=== PATIENT | female | born 1980 | race Caucasian/White ===

== ENCOUNTER → 2020-02-05 17:07 | Outpatient (BNVA) | payer MEDICAID, SELFPAY | PROVIDERS: Visit Provider Nurse Practitioner Family | DX: Z20.828 Contact with and (suspected) exposure to other viral communicable diseases (principal) | CPT/HCPCS: 87635 ==

== ENCOUNTER → 2020-10-08 11:37 | Outpatient (BNVA) | payer MEDICAID, SELFPAY | PROVIDERS: Visit Provider Nurse Practitioner Family | DX: M25.552 Pain in left hip (principal); M54.5 Low back pain | CPT/HCPCS: 73502 ==

== ENCOUNTER → 2020-10-09 12:10 | Outpatient (BNVA) | payer MEDICAID, SELFPAY | PROVIDERS: Visit Provider Nurse Practitioner Family | DX: R53.83 Other fatigue (principal); E55.9 Vitamin D deficiency, unspecified; M19.90 Unspecified osteoarthritis, unspecified site; Z13.6 Encounter for screening for cardiovascular disorders; Z79.899 Other long term (current) drug therapy | CPT/HCPCS: 80053; 80061; 81003; 82306; 83036; 84443; 85025 ==

== ENCOUNTER 2020-12-10 06:00 | Outpatient (RCR) | payer MEDICAID, SELFPAY | END 2020-12-14 23:59 | disposition home or self-care (01) | LOC: WPT 06:00 | PROVIDERS: Referring Provider Nurse Practitioner Family; Visit Provider Nurse Practitioner Family | DX: M54.5 Low back pain (principal) | CPT/HCPCS: 97110; 97161 ==

== ENCOUNTER 2020-12-15 06:00 | Outpatient (RCR) | payer MEDICAID, SELFPAY | END 2021-01-14 23:59 | disposition home or self-care (01) | LOC: WPT 06:00 | PROVIDERS: Referring Provider Nurse Practitioner Family; Visit Provider Nurse Practitioner Family | DX: M54.5 Low back pain (principal); G89.29 Other chronic pain | CPT/HCPCS: 97110; 97530 ==

== ENCOUNTER → 2021-01-17 13:12 | Outpatient (BNVA) | payer MEDICAID, SELFPAY | PROVIDERS: Visit Provider Psychiatry & Neurology Psychiatry | DX: F43.12 Post-traumatic stress disorder, chronic (principal); F33.2 Major depressive disorder, recurrent severe without psychotic features; F41.1 Generalized anxiety disorder; F17.210 Nicotine dependence, cigarettes, uncomplicated | CPT/HCPCS: 99204 ==

== ENCOUNTER 2021-03-11 08:23 | Outpatient (CLI) | payer MEDICAID, SELFPAY ==
--- NOTE | 2021-03-11 08:37 | MR_ITS ---
WS: [id number] MRI LUMBAR SPINE NONCONTRAST TECHNIQUE: Sagittal T1, T2 and STIR imaging. Axial T1 and T2 imaging. CLINICAL INFORMATION: RADICULOPATHY COMPARISON: None. FINDINGS: Normal lumbar alignment. No acute compression. No high-grade central canal stenosis. L1-L2: Normal. L2-L3: Normal. L3-L4: No significant disc bulging. Mild facet arthropathy. Spinal canal and foramen are patent. L4-L5: Mild annular bulging. Mild facet arthropathy. Spinal canal and foramen are patent. L5-S1: No significant disc bulging. Mild facet arthropathy. Spinal canal and foramen are patent. Suggestion of a small pedunculated fibroid dome of the uterus measuring 2.1 cm. This can be followed up with ultrasound. Small right ovarian cyst. Left renal cyst. MR/MR lumbar spine wo con* [id number] IMPRESSION: 1. Mild lumbar curve. No acute compression. No high-grade central canal stenos is. 2. Mild annular bulging L4-5 with slight effacement of ventral thecal sac. 3. Mild facet arthropathy L3-L4 L4-L5 and L5-S1. 4. No significant spinal canal or foraminal narrowing. 5. Suggestion of a pedunculated fibroid uterine fundus measuring 2.1 cm. This can be followed up with ultrasound.
--- NOTE | 2021-03-11 08:38 | MR_ITS ---
WS: [id number] MRI LEFT HIP NONCONTRAST TECHNIQUE: Axial T1, axial T2 fat sat, coronal T1, coronal STIR, sagittal T2 fat sat, sagittal T1, an d sagittal T2 fat sat, of both hips. CLINICAL INFORMATION: FEMORAL ACETABULAR IMPINGEMENT OF LEFT HIP JOINT COMPARISON: None. FINDINGS: Normal bone marrow signal in the left hip and acetabulum. No acute fractures. Normal femoral neck. Mi ld joint space narrowing bilaterally. No evidence of avascular necrosis. Small amount of edema adjace nt to the left greater trochanter consistent with trochanteric bursitis. Trace edema adjacent to the right greater trochanter. Hypertrophic changes of the acetabulum bilaterally. Acetabular retroversion better assess the recent radiographs associated with an increased risk of femoral acetabular impinge ment. No edema in the acetabulum or femoral necks. Normal superior and inferior pubic rami. Normal visualized soft tissues.Small amount of edema involvi ng the right sacrum adjacent to the sacroiliac joint. Normal bone marrow signal in the lower lumbar spine.Trace free fluid in the cul-de-sac. Right ovarian cyst measuring 1.8 cm MR/MR hip LT wo con* [id number] IMPRESSION: 1. Normal bone marrow signal in both hips. No acute fractures. 2. Acetabular retroversion seen on the recent radiographs. No edema in the ying tabulum or femoral necks. 3. Mild hypertrophic changes involving the acetabulum bilaterally. 4. Mild left greater than right trochanteric bursitis. 5. Small amount of edema in the right sacrum adjacent to the sacroiliac joint likely degenerative or inflammatory. Left sacroiliac joint is normal. 6. Small amount of free fluid in the pelvis with small right ovarian cyst kenya uring 1.8 cm.
== END 2021-03-11 08:24 | disposition home or self-care (01) ==
PROVIDERS: Visit Provider Nurse Practitioner Family
DX: M54.16 Radiculopathy, lumbar region (principal); M25.852 Other specified joint disorders, left hip; M71.552 Other bursitis, not elsewhere classified, left hip; R60.0 Localized edema; M51.26 Other intervertebral disc displacement, lumbar region; M47.816 Spondylosis without myelopathy or radiculopathy, lumbar region; M47.817 Spondylosis without myelopathy or radiculopathy, lumbosacral region
CPT/HCPCS: 72148; 73721

== ENCOUNTER 2021-04-04 06:00 | Outpatient (RCR) | payer MEDICAID, SELFPAY | END 2021-04-15 23:59 | disposition home or self-care (01) | LOC: WPT 06:00 | PROVIDERS: PCP Nurse Practitioner Family; Referring Provider Nurse Practitioner Family; Visit Provider Nurse Practitioner Family | DX: M54.50 Low back pain, unspecified (principal); G89.29 Other chronic pain | CPT/HCPCS: 97110; 97161 ==

== ENCOUNTER 2021-04-16 06:00 | Outpatient (RCR) | payer MEDICAID, SELFPAY | END 2021-05-16 23:59 | disposition home or self-care (01) | LOC: WPT 06:00 | PROVIDERS: Referring Provider Nurse Practitioner Family; Visit Provider Nurse Practitioner Family | DX: M54.50 Low back pain, unspecified (principal) | CPT/HCPCS: 97110; 97140; 97530 ==

== ENCOUNTER → 2021-04-28 13:55 | Outpatient (BNVA) | payer MEDICAID, SELFPAY | PROVIDERS: PCP Nurse Practitioner Family; Visit Provider Counselor Mental Health | DX: F41.1 Generalized anxiety disorder (principal); F33.2 Major depressive disorder, recurrent severe without psychotic features; F43.12 Post-traumatic stress disorder, chronic | CPT/HCPCS: 90834 ==

== ENCOUNTER → 2021-05-02 10:42 | Outpatient (BNVA) | payer MEDICAID, SELFPAY | PROVIDERS: Visit Provider Psychiatry & Neurology Psychiatry | DX: F41.1 Generalized anxiety disorder (principal); F33.2 Major depressive disorder, recurrent severe without psychotic features; F43.12 Post-traumatic stress disorder, chronic; F17.210 Nicotine dependence, cigarettes, uncomplicated | CPT/HCPCS: 99214 ==

== ENCOUNTER 2021-05-07 12:33 | Outpatient (CLI) | payer MEDICAID, SELFPAY ==
--- NOTE | 2021-05-07 12:44 | US_ITS ---
WS: [id number] TRANSABDOMINAL PELVIC AND TRANSVAGINAL PELVIC ULTRASOUND HISTORY: Uterine leiomyoma. COMPARISON: None available. Uterus: 8.1 cm x 5.4 cm x 4.5 cm. Normal size anteverted uterus. Endometrium: 1.4 cm. Mildly thickened heterogeneous endometrium. Endometrium within normal limits for menstruating female. No increased vascularity. Right ovary: 2.1 cm x 1.7 cm x 1.4 cm. Normal size ovary. Normal vascularity. Left ovary: 2.1 cm x 2.8 cm x 2.4 cm. LEFT ovary is slightly enlarged. Adjacent to the ovary may be i nseparable is a cystic mass measuring 1.9 x 2.0 x 2.5 cm with no increased vascularity. No free fluid. US/US pelvic with transvaginal IMPRESSION: 1. Slightly enlarged LEFT ovary with an adjacent paraovarian cyst. The LEFT ov gilberto does abut the uterus. Alternatively this could be an exophytic fibroid from the uterus extending into the LEFT adnexa mimicking an ovary. 2. Normal endometrium.
== END 2021-05-07 12:34 | disposition home or self-care (01) ==
LOC: RAD 12:34
PROVIDERS: Visit Provider Nurse Practitioner Family
DX: F41.1 Generalized anxiety disorder (principal); F33.2 Major depressive disorder, recurrent severe without psychotic features; F43.12 Post-traumatic stress disorder, chronic
CPT/HCPCS: 90837; 76830; 76856; 90834

== ENCOUNTER 2021-05-17 06:00 | Outpatient (RCR) | payer MEDICAID, SELFPAY | END 2021-06-16 23:59 | disposition home or self-care (01) | LOC: WPT 06:00 | PROVIDERS: PCP Family Medicine; Referring Provider Nurse Practitioner Family; Visit Provider Nurse Practitioner Family | DX: M54.2 Cervicalgia (principal); G89.29 Other chronic pain | CPT/HCPCS: 97110; 97140; 97530 ==

== ENCOUNTER → 2021-06-12 12:19 | Outpatient (BNVA) | payer MEDICAID, SELFPAY | PROVIDERS: PCP Family Medicine; Visit Provider Nurse Practitioner Family | DX: J06.9 Acute upper respiratory infection, unspecified (principal) | CPT/HCPCS: 87635 ==

== ENCOUNTER → 2021-07-30 11:05 | Outpatient (BNVA) | payer MEDICAID, SELFPAY | PROVIDERS: PCP Family Medicine; Visit Provider Psychiatry & Neurology Psychiatry | DX: F41.1 Generalized anxiety disorder (principal); F33.2 Major depressive disorder, recurrent severe without psychotic features; F43.12 Post-traumatic stress disorder, chronic; F17.210 Nicotine dependence, cigarettes, uncomplicated | CPT/HCPCS: 99213 ==

== ENCOUNTER → 2021-08-11 13:55 | Outpatient (BNVA) | payer MEDICAID, SELFPAY | PROVIDERS: PCP Family Medicine; Referring Provider Nurse Practitioner Family; Visit Provider Obstetrics & Gynecology | DX: Z12.4 Encounter for screening for malignant neoplasm of cervix (principal); N83.8 Other noninflammatory disorders of ovary, fallopian tube and broad ligament; N94.89 Other specified conditions associated with female genital organs and menstrual cycle | CPT/HCPCS: 87624 ==

== ENCOUNTER 2021-09-17 07:35 | Outpatient (CLI) | payer MEDICAID, SELFPAY ==
--- NOTE | 2021-09-17 08:00 | US_ITS ---
WS: [id number] TRANSABDOMINAL PELVIC AND TRANSVAGINAL PELVIC ULTRASOUND HISTORY: N83.8 - Other noninflammatory disorders of ovary, follow-up cyst. COMPARISON: 05/07/2021 Uterus: 8.6 cm x 4.9 cm x 4.6 cm. Normal size anteverted uterus. No fibroid or mass identified today. Endometrium: 1.1 cm. Normal endometrium. No mass or increased vascularity. Right ovary: 4.4 cm x 3.3 cm x 2.2 cm. Mildly prominent ovary. There is a cyst measuring 2.6 x 2.8 x 2.0 cm associated with the ovary. This is a simple cyst. Normal vascularity within the adjacent ovari an tissue. Left ovary: 2.2 cm x 2.1 cm x 1.6 cm. Normal size ovary. Previously described LEFT paraovarian cyst i s no longer present. No free fluid. US/US pelvic with transvaginal IMPRESSION: 1. Resolved LEFT adnexal cyst since the prior study. 2. No fibroid. 3. New simple LEFT RIGHT ovarian cyst measures 2.6 x 2.8 x 2.0 cm.
== END 2021-09-17 07:36 | disposition home or self-care (01) ==
LOC: RAD 07:36
PROVIDERS: PCP Family Medicine; Visit Provider Obstetrics & Gynecology
DX: N83.8 Other noninflammatory disorders of ovary, fallopian tube and broad ligament (principal)
CPT/HCPCS: 76830; 76856

== ENCOUNTER → 2021-12-03 13:59 | Outpatient (BNVA) | payer MEDICAID, SELFPAY | PROVIDERS: PCP Family Medicine; Referring Provider Dermatology; Visit Provider Podiatrist Foot & Ankle Surgery | DX: M25.571 Pain in right ankle and joints of right foot (principal) | CPT/HCPCS: 73610; 99203; 99204 ==

== ENCOUNTER → 2022-03-09 10:53 | Outpatient (BNVA) | payer MEDICAID, SELFPAY | PROVIDERS: PCP Family Medicine; Visit Provider Podiatrist Foot & Ankle Surgery | DX: M25.571 Pain in right ankle and joints of right foot (principal) | CPT/HCPCS: 20600 ==

== ENCOUNTER → 2022-06-22 10:21 | Outpatient (BNVA) | payer MEDICAID, SELFPAY | PROVIDERS: PCP Nurse Practitioner Family; Visit Provider Podiatrist Foot & Ankle Surgery | DX: M25.571 Pain in right ankle and joints of right foot (principal) | CPT/HCPCS: 99213 ==

== ENCOUNTER → 2022-10-05 14:31 | Outpatient (BNVA) | payer MEDICAID, SELFPAY | PROVIDERS: PCP Nurse Practitioner Family; Visit Provider Internal Medicine Cardiovascular Disease | DX: R07.9 Chest pain, unspecified (principal); F12.10 Cannabis abuse, uncomplicated; R55 Syncope and collapse; E78.5 Hyperlipidemia, unspecified; I10 Essential (primary) hypertension; R06.02 Shortness of breath; F17.210 Nicotine dependence, cigarettes, uncomplicated | CPT/HCPCS: 99204 ==

== ENCOUNTER 2022-10-23 14:22 | Outpatient (CLI) | payer MEDICAID, SELFPAY ==
--- NOTE | 2022-10-23 14:45 | USCV_ITS ---
[facility] Age[facility] 42 Gender: F : 1980 Exam Date: 10/23/2022 14:35 Ordering Phys: Antonella Lou MD ([email or web address]) Technologist: Cal Kumar Exam Location: [facility] [place] Indication: Congestive heart failure BP: 145 / 90 HR: 64 Rhythm: Sinus Technical Quality: Adequate MEASUREMENTS (Male / Female) Normal Values 2D ECHO LV Diastolic Diameter PLAX 4.3 cm 4.2 - 5.9 / 3.9 - 5.3 cm LV Systolic Diameter PLAX 3.2 cm IVS Diastolic Thickness 1.3 cm 0.6 - 1.0 / 0.6 - 0.9 cm IVS Systolic Thickness 1.6 cm LVPW Diastolic Thickness 1.0 cm 0.6 - 1.0 / 0.6 - 0.9 cm LVPW Systolic Thickness 1.8 cm LVOT Diameter 2.0 cm LV Ejection Fraction 2D Teich 45.3 % LV Ejection Fraction MOD 2C 55.6 % LV Ejection Fraction 2C AL 55.0 % LA Diameter 3.4 cm IVC Diameter 1.3 cm M-MODE Aortic Annulus Diameter 3.2 cm LA Ao Ratio MM 1.1 MV E Point Septal Separation 0.7 cm DOPPLER AV Peak Velocity 126.0 cm/s LVOT Peak Velocity 102.0 cm/s AV Area Cont Eq vti 3.1 cm squared AV Area Cont Eq pk 2.7 cm squared MV Area PHT 5.0 cm squared Mitral E to A Ratio 1.3 MV E' Velocity 57.0 cm/s Mitral E to MV E' Ratio 7.1 Mitral E to LV E' Lateral Ratio 7.8 Mitral E to LV E' Septal Ratio 6.5 TR Peak Velocity 163.0 cm/s TR Peak Gradient 10.6 mmHg RV Acceleration Time 0.2 s FINDINGS Left Ventricle Normal left ventricular size, systolic function and wall thickness, with no regional wall motion abnormalities. Left ventricular ejection fraction is estimated at 70 %. Normal diastolic function. Right Ventricle Normal right ventricular size and systolic function. Right Atrium Normal right atrial size. Left Atrium Normal left atrial size. Mitral Valve Mildly thickened mitral valve. No mitral valve stenosis. Trace mitral valve regurgitation. Aortic Valve Aortic valve not well visualized. No aortic valve stenosis. No aortic valve regurgitation. Tricuspid Valve Structurally normal tricuspid valve. No tricuspid valve stenosis. Trace to mild tricuspid valve regurgitation. Pulmonic Valve Structurally normal pulmonic valve. No pulmonary valve stenosis. No pulmonary valve regurgitation. Pericardium No pericardial effusion. Aorta Normal size aortic root and proximal ascending aorta. IVC Normal IVC dimension with >50% respiratory change of the inferior vena cava. CONCLUSIONS 1. Normal left ventricular size, systolic function and wall thickness, with no regional wall motion abnormalities. Left ventricular ejection fraction is estimated at 70 %. Normal diastolic function. 2. No significant valvular abnormality. 3. No prior similar studies to compare. Eva Conrad MD (Electronically Signed) Final Date: 29 October 2022 15:50 S
== END 2022-10-23 14:23 | disposition home or self-care (01) ==
LOC: RAD 14:23
PROVIDERS: PCP Nurse Practitioner Family; Visit Provider Internal Medicine Cardiovascular Disease
DX: R07.9 Chest pain, unspecified (principal); I50.9 Heart failure, unspecified; R06.09 Other forms of dyspnea
CPT/HCPCS: 93306; 99204

== ENCOUNTER 2022-10-30 06:32 | Outpatient (CLI) | payer MEDICAID, SELFPAY ==
--- NOTE | 2022-10-30 | ECG_ITS ---
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 Interpretive Statements NAME OF STUDY: EXERCISE SESTAMIBI STRESS TEST INDICATION: [Chest Pain, ] EXERCISE DATA: The patient was exercised by Kg protocol. Baseline heart rate was 59 beats per minute. Baseline blood pressure was 130/77 millimeters of mercury. Target heart rate was 151 beats per minute. Maximum heart rate achieved was 160 which was 105 % of the target heart rate. Maximum blood pressure was 172/84 millimeters of mercury. Total exercise time was 6 minutes and 46 seoconds. Maximum METs achieved was 10.2. The reason for ending the test was maximal effort achieved. The patient complained of shortness of breath during the stress test, which then resolved at the end of the test. ELECTROCARDIOGRAM: BASELINE: Showed sinus bradycardia, normal axis, no significant ST-T changes at the baseline noted. [] EXERCISE: At the peak exercise level, [] No significant ST-T changes suggestive of ischemia noted. [] RECOVERY: During the recovery period, heart rate dropped appropriately. No significant ST-T changes in the recovery suggestive of ischemia noted. [] CONCLUSION: 1. Exercise capacity is good 2. Heart rate response was appropriate 3. Blood pressure response was appropriate 4. Symptoms not suggestive of ischemia. 5. Electrocardiogram portion of the stress test was not suggestive of ischemia. 6. Nuclear scan will be documented separately. Electronically Signed On 11-06-2022 16:10:49 CDT by Philip Alcazar M.D. [id number]
[2022-10-30 06:51] VITALS: BMI 28.5
--- NOTE | 2022-10-30 06:54 | NMCV_ITS ---
NM feli perf SPECT r/s* [id number] Ngozi Peter Age: 42 Gender: F : 1980 Exam Date: 10/30/2022 06:54 Ordering Phys: Antonella Lou MD ([email or web address]) Technologist: OSVALDO Rodas Exam Location: [facility] Indications: CORONARY ANGIOPLASTY STATUS, CHEST PAIN STRESS TEST Please [facility] IMAGE PROTOCOL Rest Exercise Radiopharmaceutical Dose (mCi) Administration Site Administered by Rest: Tc-99m 10.7 IV Wiley Anderson, CERTIFIED MEDICAL BILLER Sestamibi Stress:Tc-99m 32.7 IV Wiley Anderson, CERTIFIED MEDICAL BILLER Sestamibi Rest: 30-Oct-2022 60 Discovery 630 Stress: 30-Oct-2022 30 Discovery 630 Radiopharmaceutical was injected at 86 % maximum heart rate. Images obtained in supine and prone position. SPECT RESULTS Technical Quality: Excellent Raw Data Analysis: Normal Image Corrections: No attenuation or motion correction applied Summed Stress Score: 0 Summed Rest Score: 0 Summed Difference Score: 0 PERFUSION FINDINGS SPECT images demonstrate homogeneous tracer distribution throughout the myocardium. FUNCTIONAL RESULTS (calculated via Gated SPECT) Stress Image LV EF (%): 76 Stress EDV (mL):86 TID: 0.75 Stress ESV (mL):21 FUNCTIONAL FINDINGS: There is normal left ventricular systolic function. IMPRESSIONS 1. Normal myocardial perfusion imaging with no evidence of ischemia. 2. LV systolic function is normal. Philip Alcazar MD (Electronically Signed) Final Date: 30 October 2022 10:27 S
[2022-10-30 09:00] VITALS: BP 146/77; PULSE 80
== END 2022-10-30 06:33 | disposition home or self-care (01) ==
LOC: CDL 06:33
PROVIDERS: PCP Nurse Practitioner Family; Visit Provider Internal Medicine Cardiovascular Disease
DX: R07.9 Chest pain, unspecified (principal); Z98.61 Coronary angioplasty status
CPT/HCPCS: 36415; 78452; 93017; A9500

== ENCOUNTER → 2022-12-10 09:14 | Outpatient (BNVA) | payer MEDICAID, SELFPAY | PROVIDERS: PCP Nurse Practitioner Family; Visit Provider Nurse Practitioner Family | DX: C44.519 Basal cell carcinoma of skin of other part of trunk (principal); C44.612 Basal cell carcinoma of skin of right upper limb, including shoulder; L81.4 Other melanin hyperpigmentation; D22.5 Melanocytic nevi of trunk; L85.3 Xerosis cutis; L57.8 Other skin changes due to chronic exposure to nonionizing radiation; L70.5 Acne excoriee; L57.0 Actinic keratosis | CPT/HCPCS: 17000; 99214 ==

== ENCOUNTER → 2023-02-25 11:26 | Outpatient (BNVA) | payer MEDICAID, SELFPAY | PROVIDERS: PCP Nurse Practitioner Family; Visit Provider Nurse Practitioner | DX: R63.4 Abnormal weight loss (principal) | CPT/HCPCS: 80053; 84443; 85025 ==

== ENCOUNTER → 2023-09-16 09:32 | Outpatient (BNVA) | payer MEDICAID, SELFPAY | PROVIDERS: PCP Nurse Practitioner Family; Visit Provider Nurse Practitioner Family | DX: C44.519 Basal cell carcinoma of skin of other part of trunk (principal); C44.612 Basal cell carcinoma of skin of right upper limb, including shoulder; L81.4 Other melanin hyperpigmentation; D22.5 Melanocytic nevi of trunk; L85.3 Xerosis cutis; L57.8 Other skin changes due to chronic exposure to nonionizing radiation; L70.5 Acne excoriee; B35.1 Tinea unguium | CPT/HCPCS: 99214 ==

== ENCOUNTER → 2023-12-23 13:45 | Outpatient (BNVA) | payer MEDICAID, SELFPAY | PROVIDERS: PCP Nurse Practitioner Family; Visit Provider Internal Medicine | DX: R07.9 Chest pain, unspecified (principal); F12.10 Cannabis abuse, uncomplicated; R55 Syncope and collapse; I10 Essential (primary) hypertension; E78.5 Hyperlipidemia, unspecified; Z72.0 Tobacco use | CPT/HCPCS: 99214 ==

== ENCOUNTER → 2024-03-30 09:35 | Outpatient (BNVA) | payer MEDICAID, SELFPAY | PROVIDERS: PCP Nurse Practitioner Family; Visit Provider Surgery | DX: C44.91 Basal cell carcinoma of skin, unspecified | CPT/HCPCS: 99204 ==

== ENCOUNTER 2024-04-11 07:49 | Day surgery (SDC) | payer MEDICAID, SELFPAY ==
[2024-04-11] VITALS (10 sets, daily range): BP systolic 102–163; BP diastolic 69–86; PULSE 72–89; RESP 16–18; TEMP 36.4–36.6; O2SAT 95–100; BMI 24.7
[2024-04-11] MEDS: sodium chloride 0.9% 1,000 ML 30 ML IV (08:21)
--- NOTE | 2024-04-11 08:45 | ANES.PREANE2 ---
Pre-Anesthetic Assessment Height/Weight: Height 1.57 m Weight 61.235 kg Temp Pulse Resp BP Pulse Ox O2 Del Method 97.9 F 72 18 120/79 100 Room Air 04/11/24 08:12 04/11/24 08:12 04/11/24 08:12 04/11/24 08:12 04/11/24 08:12 04/11/24 08:15 Operation Date: 04/11/24 09:55 Proposed Procedures p excision of skin lesion on left shoulder and right shoulder 71954, 52681, M75.90(Bilateral) - Matheus Kee DO Familial anesthetic complications: None Was Beta Sachin taken within 24 hours: N/A Was Clonidine taken within 24 hours: N/A Last intake: Intake Last Liquid Date 04/10/24 Last Liquid Time 20:00 Last Solid Date 04/10/24 Last Solid Time 20:00 Social Tobacco and No alcohol Exam alert, oriented x 3, clear to auscultation bilaterally and regular rate & rhythm Airway Mallampati: Class I Dentition: other (no teeth) CV/HEM Hypertension Metabolic Hyperlipidemia Anesthetic Plan ASA status: 3 Anesthesia: Choice Risk of > 500 ml blood loss (7ml/kg in children): No Medications/Allergies Home Medications Medication Instructions Recorded Confirmed Last Taken Type albuterol sulfate 90 mcg/actuation 1 inh inhalation QID 08/04/19 04/10/24 04/11/24 History aerosol inhaler (Proventil HFA) cetirizine 10 mg capsule (Zyrtec) 10 mg PO DAILY 30 days #30 caps 08/04/19 04/10/24 04/09/24 Rx fluticasone propionate 50 2 spray intranasal DAILY PRN 08/04/19 04/10/24 04/09/24 Rx mcg/actuation nasal allergy symptoms 30 days #15.8 mL spray,suspension montelukast 10 mg tablet 10 mg PO DAILY 08/04/19 04/10/24 04/09/24 History (Singulair) glycopyrrolate 9 mcg-formoterol 2 puff inhalation BID 12/04/20 04/10/24 04/11/24 History 4.8 mcg HFA aerosol inhaler (Bevespi Aerosphere) ibuprofen 800 mg tablet 800 mg PO TID PRN pain 01/17/21 04/10/24 04/09/24 History gabapentin 300 mg capsule 300 mg PO TID 02/21/21 04/10/24 04/09/24 History oyster shell with vit d PO DAILY 02/21/21 03/30/24 Unknown History pantoprazole 20 mg tablet,delayed 20 mg PO DAILY 02/21/21 04/10/24 04/09/24 History release (Protonix) rizatriptan 10 mg tablet (Maxalt) 10 mg PO Q2H PRN Headache 02/21/21 04/10/24 04/02/24 History multivitamin 1 tab PO DAILY 05/02/21 03/30/24 Unknown History mupirocin 2 % topical ointment 1 applic topical BID #22 grams 03/11/22 03/30/24 Unknown Rx duloxetine 60 mg capsule,delayed 60 mg PO DAILY #30 caps 06/12/22 04/10/24 04/09/24 Rx release hydroxyzine HCl 50 mg tablet 50 mg PO QID PRN anxiety #120 tabs 06/12/22 04/10/24 04/09/24 Rx mirtazapine 15 mg tablet 22.5 mg (1.5 x 15 mg) PO .HS #45 06/12/22 04/10/24 04/09/24 Rx tabs oxcarbazepine 300 mg tablet 600 mg (2 x 300 mg) PO BID #120 06/12/22 04/10/24 04/09/24 Rx (Trileptal) tabs prazosin 5 mg capsule 5 mg PO .HS #30 caps 06/12/22 04/10/24 04/09/24 Rx nitroglycerin 0.4 mg sublingual 0.4 mg sublingual Q5M PRN chest 10/05/22 04/10/24 03/06/24 Rx tablet pain 30 days #30 tabs Allergies Allergy/AdvReac Type Severity Reaction Status Date / Time ciprofloxacin [From Cipro] Allergy Intermediate rash Verified 12/23/23 13:55 Current Medications Generic Name Dose Route Start Last Admin Trade Name Freq PRN Reason Stop Dose Admin Sodium Chloride 1,000 mls @ 30 mls/hr 04/11/24 08:00 04/11/24 08:21 Sodium Chloride 0.9% IV 04/12/24 07:59 30 mls/hr .Q24H COREY Administration PFSH Anesthesia Medical History Oral infection Syncope H/O fracture of ankle Adnexal mass Femoral acetabular impingement Gout of left hip due to renal impairment Arthritis Low back pain radiating to right leg Left hip pain Cough Insomnia Anxiety Depression Bipolar 1 disorder COPD (chronic obstructive pulmonary disease) Surgical History S/P tonsillectomy and adenoidectomy H/O laparoscopy left ankle S/P cholecystectomy H/O unilateral salpingectomy ectopic H/O tubal ligation H/O oral surgery 2000- all teeth extracted H/O plastic surgery facial surgery H/O myringotomy Family History Mother Diabetes Hyperlipidemia Hypertension Thyroid disease Heart disease Sister Diabetes x2 Thyroid disease x2 Denies family history of Colon cancer Ovarian cancer Clotting disorder Breast cancer Anesthesia complication Bleeding disorder Uterine cancer Stroke Social History Smoking and tobacco/nicotine status: current every day tobacco/nicotine user cigarettes Packs smoked per day: 1 Years cigarettes smoked: 26 Quit status (tobacco/nicotine): has tried quititng Number of times tried to quit tobacco: 1 Second hand smoke exposure: No Alcohol intake: former Year of sobriety/quit date alcohol: 2010 Substance/Drug Use: current Other substance/drug use details: Used once recently in 11 years. Female Reproductive History Date of last menstrual period: 03/23/24 Data Anesthesia Cardiac Studies: Echocardiogram 10/23/22 Sestamibi Stress Test (Cardiology) 10/30/22 Cardiac Event Monitor 12/24/23
--- NOTE | 2024-04-11 09:15 | P.HPUD_ITS ---
Surgery/Procedure H&P Update DATE OF PROCEDURE: April 11, 2024 DATE H&P PERFORMED: 03/30/24 H&P UPDATE INFORMATION: I have reviewed H&P completed within last 30 days, I have examined patient prior to procedure and No changes to prior documentation PLANNED PROCEDURE: Operation Date: 04/11/24 09:55 Proposed Procedures p excision of skin lesion on left shoulder and right shoulder 97522, 19250, M75. 90(Bilateral) - Matheus Kee DO
[2024-04-11] MEDS: ceFAZolin 2,000 mg SDV 2000 MG IVP (09:48)
--- NOTE | 2024-04-11 10:27 | P.OP_ITS ---
Operative Report Date of procedure: April 11, 2024 Pre-op diagnosis: Basal cell carcinoma left shoulder Basal cell carcinoma right shoulder Post-op diagnosis: same Procedure done: Excision of basal cell carcinoma left shoulder Excision of basal cell carcinoma right shoulder Implants: None Specimens removed/disposition: Elliptical excision of basal cell carcinoma right shoulder Elliptical excision of basal cell carcinoma left shoulder Surgeon: Matheus Kee DO Anesthesia: General and Local Estimated blood loss (mL): 5 Complications: None apparent Brief History: This is a very pleasant 44-year-old female who presented my office after undergoing shave excisions of lesions over bilateral shoulders. She was found to have basal cell carcinomas with positive margins at each site. Reexcision was indicated. The risks and benefits were explained and documented. Procedure: Patient was brought in the operative room and remained in the hospital bed in the supine position. General endotracheal ovation was achieved by the part of anesthesia. Patient was then placed into the prone position. Bilateral shoulders were inspected prepped and draped in usual sterile fashion. Timeout was performed. All present were in agreement. 2% lidocaine was used to an esthetize the lesions on both shoulders. Both lesions measured 1 cm in diameter. Elliptical excisions measuring 2.5 cm x 1.5 cm were performed over each lesion using a 15 blade scalpel. A 2.5 cm ellipse was created on the right shoulder first. Electrocautery was used to dissect through the dermis and subcutaneous tissue. Specimen was marked with short suture superior and long suture lateral. Hemostasis was achieved electrocautery. Dermis was approximated with 3-0 Vicryl suture in an interrupted fashion. Skin was closed with running 3-0 nylon. Attention was then brought to the left shoulder. A 2.5 cm x 1.5 cm ellipse of skin was performed over the skin lesion. Electrocautery was used dissect down through the dermis and subcutaneous tissue. Hemostasis was achieved with electrocautery. Specimen was marked with short suture superior and long suture lateral. Dermis approximated with 3-0 Vicryl suture in an interrupted fashion. Skin was closed with running 3-0 nylon. Sterile bandages were applied. Patient tolerated procedure well.
--- NOTE | 2024-04-11 12:00 | ANE.PACU2 ---
Inpatient post-anesthesia follow up: Airway intact: Yes Vital signs: Temperature 97.5 F Pulse Rate 78 Respiratory Rate 18 Blood Pressure 152/82 Pulse Oximetry 97 Oxygen Delivery Me thod Room Air Oxygen Flow Rate Fraction of Inspir ed Oxygen Hydration adequate: Yes Nausea and vomiting: No Pain level: 1 Mental status: Baseline
== END 2024-04-11 12:00 | disposition home or self-care (01) ==
PROVIDERS: PCP Nurse Practitioner Family; Visit Provider Surgery
PROC: (CPT 11603; principal; 2024-04-11 09:55)
DX: C44.619 Basal cell carcinoma of skin of left upper limb, including shoulder (principal); C44.612 Basal cell carcinoma of skin of right upper limb, including shoulder; I10 Essential (primary) hypertension; E78.5 Hyperlipidemia, unspecified; J44.9 Chronic obstructive pulmonary disease, unspecified; F17.210 Nicotine dependence, cigarettes, uncomplicated
CPT/HCPCS: 11603 ×2; 88304; J0690; J1100; J2250; J2405; J2704; J3010; J3490; J7030

== ENCOUNTER → 2024-04-24 08:55 | Outpatient (BNVA) | payer MEDICAID, SELFPAY | PROVIDERS: PCP Nurse Practitioner Family; Visit Provider Surgery | DX: C44.91 Basal cell carcinoma of skin, unspecified (principal); Z98.890 Other specified postprocedural states; Z85.828 Personal history of other malignant neoplasm of skin | CPT/HCPCS: 99214 ==

== ENCOUNTER 2024-05-02 06:57 | Day surgery (SDC) | payer MEDICAID, SELFPAY ==
[2024-05-02] VITALS (10 sets, daily range): BP systolic 120–151; BP diastolic 52–86; PULSE 68–91; RESP 15–18; TEMP 36.3–36.8; O2SAT 96–98; BMI 24.7
--- NOTE | 2024-05-02 07:02 | W.PM.OPSUD ---
Surgery/Procedure H&P Update DATE OF PROCEDURE: May 02, 2024 DATE H&P PERFORMED: 04/24/24 H&P UPDATE INFORMATION: I have reviewed H&P completed within last 30 days, I have examined patient prior to procedure and No changes to prior documentation PLANNED PROCEDURE: Operation Date: 05/02/24 08:20 Proposed Procedures p reexcision of basal cell carcinoma of left shoulder(Left) - Matheus Kee DO
--- NOTE | 2024-05-02 07:23 | ANES.PREANE2 ---
Pre-Anesthetic Assessment Height/Weight: Height 1.6 m Weight 63.503 kg Temp Pulse Resp BP Pulse Ox O2 Del Method 97.3 F L 68 18 136/76 97 Room Air 05/02/24 07:12 05/02/24 07:12 05/02/24 07:12 05/02/24 07:12 05/02/24 07:12 05/02/24 07:12 Operation Date: 05/02/24 08:20 Proposed Procedures p reexcision of basal cell carcinoma of left shoulder(Left) - Matheus Kee DO Familial anesthetic complications: None Was Beta Sachin taken within 24 hours: N/A Was Clonidine taken within 24 hours: N/A Last intake: Intake Last Liquid Date 05/01/24 Last Liquid Time 20:00 Last Solid Date 05/01/24 Last Solid Time 19:30 Social Tobacco and No alcohol MJ Airway Mallampati: Class I Dentition: other (none) CV/HEM Stable Angina (hx atypical) and Hypertension Date of Service: 10/30/22 Procedure(s): NM feli perf SPECT r/s* [id number] IMPRESSIONS 1. Normal myocardial perfusion imaging with no evidence of ischemia. 2. LV systolic function is normal. Date of Service: 10/23/22 Procedure(s): CV. echo complete* [id number] CONCLUSIONS 1. Normal left ventricular size, systolic function and wall thickness, with no regional wall motion abnormalities. Left ventricular ejection fraction is estimated at 70 %. Normal diastolic function. 2. No significant valvular abnormality. 3. No prior similar studies to compare. GI Gastroesophageal Reflux Disease Anesthetic Plan ASA status: 2 Anesthesia: General Risk of > 500 ml blood loss (7ml/kg in children): No Medications/Allergies Home Medications Medication Instructions Recorded Confirmed Last Taken Type albuterol sulfate 90 mcg/actuation 1 inh inhalation QID 08/04/19 05/01/24 05/01/24 History aerosol inhaler (Proventil HFA) cetirizine 10 mg capsule (Zyrtec) 10 mg PO DAILY 30 days #30 caps 08/04/19 05/01/24 05/01/24 Rx fluticasone propionate 50 2 spray intranasal DAILY PRN 08/04/19 05/01/24 04/09/24 Rx mcg/actuation nasal allergy symptoms 30 days #15.8 mL spray,suspension montelukast 10 mg tablet 10 mg PO DAILY 08/04/19 05/01/24 04/30/24 History (Singulair) glycopyrrolate 9 mcg-formoterol 2 puff inhalation BID 12/04/20 05/01/24 05/01/24 History 4.8 mcg HFA aerosol inhaler (Bevespi Aerosphere) ibuprofen 800 mg tablet 800 mg PO TID PRN pain 01/17/21 05/01/24 04/09/24 History oyster shell with vit d 1 tab PO DAILY 02/21/21 05/01/24 05/01/24 History pantoprazole 20 mg tablet,delayed 20 mg PO DAILY 02/21/21 05/01/24 05/01/24 History release (Protonix) rizatriptan 10 mg tablet (Maxalt) 10 mg PO Q2H PRN Headache 02/21/21 05/01/24 04/02/24 History multivitamin 1 tab PO DAILY 05/02/21 05/01/24 05/01/24 History mupirocin 2 % topical ointment 1 applic topical BID #22 grams 03/11/22 05/01/24 05/01/24 Rx duloxetine 60 mg capsule,delayed 60 mg PO DAILY #30 caps 06/12/22 05/01/24 05/01/24 Rx release hydroxyzine HCl 50 mg tablet 50 mg PO QID PRN anxiety #120 tabs 06/12/22 05/01/24 04/09/24 Rx mirtazapine 15 mg tablet 22.5 mg (1.5 x 15 mg) PO .HS #45 06/12/22 05/01/24 04/30/24 Rx tabs oxcarbazepine 300 mg tablet 600 mg (2 x 300 mg) PO BID #120 06/12/22 05/01/24 05/01/24 Rx (Trileptal) tabs prazosin 5 mg capsule 5 mg PO .HS #30 caps 06/12/22 05/01/24 05/01/24 Rx nitroglycerin 0.4 mg sublingual 0.4 mg sublingual Q5M PRN chest 10/05/22 05/01/24 03/06/24 Rx tablet pain 30 days #30 tabs docusate sodium 100 mg capsule 100 mg PO BID #10 caps 04/11/24 05/01/24 05/01/24 Rx (Colace) hydrocodone 7.5 mg-acetaminophen 1 tab PO Q6H PRN pain #14 tabs 04/11/24 05/01/24 Unknown Rx 325 mg tablet gabapentin 300 mg capsule 600 mg PO TID 04/18/24 05/01/24 05/01/24 History Allergies Allergy/AdvReac Type Severity Reaction Status Date / Time ciprofloxacin [From Cipro] Allergy Intermediate rash Verified 04/24/24 09:03 eszopiclone [From Lunesta] Allergy ADR-Altered Verified 05/01/24 16:14 Sense of Taste PFSH Anesthesia Medical History (Updated 04/26/24 @ 15:03 by JONI Dumont) Otitis media, chronic, bilateral Oral infection Syncope H/O fracture of ankle Adnexal mass Femoral acetabular impingement Gout of left hip due to renal impairment Arthritis Low back pain radiating to right leg Left hip pain Cough Insomnia Anxiety Depression Bipolar 1 disorder COPD (chronic obstructive pulmonary disease) Surgical History (Updated 04/24/24 @ 10:08 by Matheus Kee DO) Hx of basal cell carcinoma excision Excision of basal cell carcinoma left shoulder Excision of basal cell carcinoma right shoulder 04/11/24 Dr Kee S/P tonsillectomy and adenoidectomy H/O laparoscopy left ankle S/P cholecystectomy H/O unilateral salpingectomy ectopic H/O tubal ligation H/O oral surgery 2000- all teeth extracted H/O plastic surgery facial surgery H/O myringotomy Family History Mother Diabetes Hyperlipidemia Hypertension Thyroid disease Heart disease Sister Diabetes x2 Thyroid disease x2 Denies family history of Colon cancer Ovarian cancer Clotting disorder Breast cancer Anesthesia complication Bleeding disorder Uterine cancer Stroke Social History Smoking and tobacco/nicotine status: current every day tobacco/nicotine user cigarettes Packs smoked per day: 1 Years cigarettes smoked: 26 Quit status (tobacco/nicotine): has tried quititng Number of times tried to quit tobacco: 1 Second hand smoke exposure: No Alcohol intake: former Year of sobriety/quit date alcohol: 2010 Substance/Drug Use: current Other substance/drug use details: Used once recently in 11 years. Female Reproductive History Date of last menstrual period: 04/17/24 Data Anesthesia Cardiac Studies: Echocardiogram 10/23/22 Sestamibi Stress Test (Cardiology) 10/30/22 Cardiac Event Monitor 12/24/23
[2024-05-02] MEDS: sodium chloride 0.9% 1,000 ML 30 ML IV (07:29)
[2024-05-02 07:38] LABS: OR HCG Qualitative Urine Negative (Negative)
[2024-05-02] MEDS: ceFAZolin 2,000 mg SDV 2000 MG IVP (08:15)
[2024-05-02] MEDS: lidocaine-epi 2% PF 1:200,000 20 mL SDV XX (08:31)
[2024-05-02] MEDS: neomycin-poly-bacitracin oint 28 gm 3 APPLIC TOPICAL (09:03)
--- NOTE | 2024-05-02 09:35 | P.OP_ITS ---
Operative Report Date of procedure: May 02, 2024 Pre-op diagnosis: Basal cell carcinoma Post-op diagnosis: same Procedure done: Reexcision of basal cell carcinoma left shoulder Complex closure with creation of skin pedicle flaps x 2 Implants: None Specimens removed/disposition: Elliptical excision of basal cell carcinoma short stitch superior, long stitch lateral Surgeon: Matheus Kee DO Anesthesia: General and Local Estimated blood loss (mL): 5 Complications: None apparent Brief History: This very pleasant 44-year-old female who originally underwent shave excisional biopsy of a basal cell carcinoma on her left shoulder. Margins were positive and she was sent to general surgery. I performed an elliptical excision of the carcinoma and lateral and deep margins were still positive. Reexcision for margins was indicated. The risks and benefits were explained and documented. Procedure: Patient was wheeled operative room placed on the OR table in the supine position. General anesthesia with an LMA was performed by the department of anesthesia. The patient was put into the right lateral decubitus position. The left back and shoulder were inspected prepped and draped in usual sterile fashion. A timeout was performed. All present were in agreement. 2% lidocaine was used to anesthetize the skin surrounding the previous excision. A 10 blade scalpel was then used to make an elliptical excision around the previous excision. Excision measured centimeters in greatest diameter. Electrocautery was used to cut down through the dermis and into the subcutaneous fat. 6 or 7 mm of subcutaneous fat was taken deep to the dermis, as the deep margin was positive in the last specimen. Electrocautery was used to carve out the rest of the ellipse, including deep subcutaneous fat. Superior was marked with a short silk stitch. Lateral was marked with a long silk stitch. Specimen was passed off. Hemostasis was achieved electrocautery. The skin would not come together without very significant tension. In order to close the skin, a complex closure was performed. Skin pedicle flaps were created both left lateral and right lateral using electrocautery. Electrocautery was used to create a 1 cm thickness of skin and subcutaneous tiss ue skin pedicle flap back 4 cm the entire length of the incision of the left laterally and right laterally. The skin did come together with little tension. 2-0 nylon suture was then used to approximate the skin and dermis in the center of the ellipse in a vertical mattress fashion. 3-0 nylon suture was then used to close the remaining length of the incision in a simple interrupted fashion. Skin was washed and dried. Bacitracin was applied. Sterile bandages were applied. Patient tolerated procedure well.
--- NOTE | 2024-05-02 10:25 | ANE.PACU2 ---
Inpatient post-anesthesia follow up: Airway intact: Yes Vital signs: Temperature 98.3 F Pulse Rate 82 Respiratory Rate 18 Blood Pressure 126/85 Pulse Oximetry 96 Oxygen Delivery Me thod Room Air Oxygen Flow Rate Fraction of Inspir ed Oxygen Hydration adequate: Yes Nausea and vomiting: No Pain level: 1 Mental status: Baseline
== END 2024-05-02 10:28 | disposition home or self-care (01) ==
PROVIDERS: Anesthesiology; PCP Nurse Practitioner Family; Visit Provider Surgery
PROC: (CPT 14000; principal; 2024-05-02 08:10)
DX: C44.619 Basal cell carcinoma of skin of left upper limb, including shoulder (principal); I10 Essential (primary) hypertension; K21.9 Gastro-esophageal reflux disease without esophagitis; J44.9 Chronic obstructive pulmonary disease, unspecified; F17.210 Nicotine dependence, cigarettes, uncomplicated
CPT/HCPCS: 14000; 81025; 88307; J0690; J1100; J1885; J2371; J2405; J2704; J3010; J7030

== ENCOUNTER 2024-05-15 16:52 | Emergency (ER) | payer MEDICAID, SELFPAY ==
[2024-05-15 16:54] VITALS: BP 115/64; PULSE 66; RESP 17; TEMP 36.9; O2SAT 97; BMI 24.7
[2024-05-15 18:02] VITALS: BP 107/51; PULSE 61; O2SAT 96
--- NOTE | 2024-05-15 18:11 | ED_ITS ---
HPI - Wound/Laceration General: Chief Complaint: Wound/Laceration Stated Complaint: left shoulder wound Time Seen by Provider: 05/15/24 16:59 History of Present Illness: 44-year-old female presents to the emerg ency room with left shoulder wound that has dehisced. About 12 days ago patient had a basal cell removed from the left shoulder she could not make it to the surgeons office and instead went to a local walk-in clinic they removed the sutures shortly thereafter the wound co mpletely dehisced and is open now. Send had any drainage from it some mild discomfort. Associated symptoms: Denies chills or fever(s) Related Data Home Medications Medication Instructions Recorded Confirmed albuterol sulfate 90 mcg/actuation 1 inh inhalation QID 08/04/19 05/01/24 aerosol inhaler (Proventil HFA) montelukast 10 mg tablet 10 mg PO DAILY 08/04/19 05/01/24 (Singulair) glycopyrrolate 9 mcg-formoterol 2 puff inhalation BID 12/04/20 05/01/24 4.8 mcg HFA aerosol inhaler (Bevespi Aerosphere) ibuprofen 800 mg tablet 800 mg PO TID PRN pain 01/17/21 05/01/24 oyster shell with vit d 1 tab PO DAILY 02/21/21 05/01/24 pantoprazole 20 mg tablet,delayed 20 mg PO DAILY 02/21/21 05/01/24 release (Protonix) rizatriptan 10 mg tablet (Maxalt) 10 mg PO Q2H PRN Headache 02/21/21 05/01/24 multivitamin 1 tab PO DAILY 05/02/21 05/01/24 gabapentin 300 mg capsule 600 mg PO TID 04/18/24 05/01/24 Previous Rx's Medication Instructions Recorded cetirizine 10 mg capsule (Zyrtec) 10 mg PO DAILY 30 days #30 caps 08/04/19 fluticasone propionate 50 2 spray intranasal DAILY PRN 08/04/19 mcg/actuation nasal allergy symptoms 30 days #15.8 mL spray,suspension mupirocin 2 % topical ointment 1 applic topical BID #22 grams 03/11/22 duloxetine 60 mg capsule,delayed 60 mg PO DAILY #30 caps 06/12/22 release hydroxyzine HCl 50 mg tablet 50 mg PO QID PRN anxiety #120 tabs 06/12/22 mirtazapine 15 mg tablet 22.5 mg (1.5 x 15 mg) PO .HS #45 06/12/22 tabs oxcarbazepine 300 mg tablet 600 mg (2 x 300 mg) PO BID #120 06/12/22 (Trileptal) tabs prazosin 5 mg capsule 5 mg PO .HS #30 caps 06/12/22 nitroglycerin 0.4 mg sublingual 0.4 mg sublingual Q5M PRN chest 10/05/22 tablet pain 30 days #30 tabs docusate sodium 100 mg capsule 100 mg PO BID #10 caps 04/11/24 (Colace) hydrocodone 7.5 mg-acetaminophen 1 tab PO Q6H PRN pain #14 tabs 04/11/24 325 mg tablet docusate sodium 100 mg capsule 100 mg PO BID #10 caps 05/02/24 (Colace) hydrocodone 7.5 mg-acetaminophen 1 tab PO Q6H PRN pain #12 tabs 05/02/24 325 mg tablet mupirocin 2 % topical ointment 1 applic topical DAILY #22 grams 05/15/24 Allergies Allergy/AdvReac Type Severity Reaction Status Date / Time ciprofloxacin [From Cipro] Allergy Intermediate rash Verified 04/24/24 09:03 eszopiclone [From Lunesta] Allergy ADR-Altered Verified 05/01/24 16:14 Sense of Taste Review of Systems Const: Denies: fever(s) or chills Musc: Denies: neck pain or back pain Skin/Breast: Reports: other (Open wound on the left upper posterior shoulder) PFS ED PFSH: Medical History Otitis media, chronic, bilateral Oral infection Syncope H/O fracture of ankle Adnexal mass Femoral acetabular impingement Gout of left hip due to renal impairment Arthritis Low back pain radiating to right leg Left hip pain Cough Insomnia Anxiety Depression Bipolar 1 disorder COPD (chronic obstructive pulmonary disease) Surgical History Hx of basal cell carcinoma excision Excision of basal cell carcinoma left shoulder Excision of basal cell carcinoma right shoulder 04/11/24 Dr Kee S/P tonsillectomy and adenoidectomy H/O laparoscopy left ankle S/P cholecystectomy H/O unilateral salpingectomy ectopic H/O tubal ligation H/O oral surgery 2000- all teeth extracted H/O plastic surgery facial surgery H/O myringotomy Family History Mother Diabetes Hyperlipidemia Hypertension Thyroid disease Heart disease Sister Diabetes x2 Thyroid disease x2 Denies family history of Colon cancer Ovarian cancer Clotting disorder Breast cancer Anesthesia complication Bleeding disorder Uterine cancer Stroke Social History Smoking and tobacco/nicotine status: current every day tobacco/nicotine user cigarettes Packs smoked per day: 1 Years cigarettes smoked: 26 Quit status (tobacco/nicotine): has tried quititng Number of times tried to quit tobacco: 1 Second hand smoke exposure: No Alcohol intake: former Year of sobriety/quit date alcohol: 2010 Substance/Drug Use: current Other substance/drug use details: Used once recently in 11 years. Physical Exam Const: GENERAL APPEARANCE: cooperative ORIENTATION/CONSCIOUSNESS: Yes awake, Yes oriented to person, Yes oriented to place and Yes oriented to time HENMT: COMMON NORMALS: normocephalic, atraumatic and hearing grossly normal bilaterally HEAD & SCALP: normocephalic and atraumatic Resp: COMMON NORMALS: normal respiratory effort, No retractions, No use of accessory muscles and clear to auscultation bilaterally AUSCULTATION: clear to auscultation bilaterally Cardio: COMMON NORMALS: regular rate, regular rhythm and No murmurs present (Cardio) RATE: regular rate RHYTHM: regular rhythm Extremity: COMMON NORMALS: normal to inspection, capillary refill normal, no clubbing, cyanosis or edema, no calf tenderness and no pedal edema Neuro: SENSORIUM/ORIENTATION: Yes oriented to person, Yes oriented to place an d Yes oriented to time Skin: OTHER: Full-thickness wound is completely dehisced last upper shoulder overlying the trapezius muscle. No active drainage. No erythema no redness no induration. Procedures Laceration Laceration 1: Site: back (Overlying the left trapezius muscle superiorly) Side (If applicable): left Size (cm): 6 Description: linear Depth: simple, single layer Local Anesthetic: lidocaine 1% and with epi Amount of anesthesia used (mL): 6 Pre-repair: irrigated extensively and deep structures intact Skin layer closed with: nylon Size (cm): 3-0 Number of sutures: 3 Technique: horizontal mattress Course Vital Signs: Vital signs: Vital Signs Temperature 98.4 F 05/15/24 16:54 Pulse Rate 61 05/15/24 18:02 Respiratory Rate 17 05/15/24 16:54 Blood Pressure 107/51 05/15/24 18:02 Pulse Oximetry 96 05/15/24 18:02 Oxygen Delivery Me thod Room Air 05/15/24 16:54 MDM - Wound/Laceration Medical Decision Making Discussed Dr. Kee yes so we closed the wound by reapproximating the edges. Wound closed as per note. Follow-up with Dr. Kee in the office apply topical antibiotic ointment once daily and follow-up with Dr. Kee Medical Records I reviewed the patient's medical records. No radiology studies performed this visit Discharge Plan Discharge Patient Disposition: Home Clinical Impression: Dehiscence of wound of skin Condition: Stable Prescriptions: New mupirocin 2 % ointment 1 applic topical DAILY Qty: 22 0RF No Action albuterol sulfate [Proventil HFA] 90 mcg/actuation HFA aerosol inhaler 1 inh INHALATION QID montelukast [Singulair] 10 mg tablet 10 mg PO DAILY Zyrtec 10 mg capsule 10 mg PO DAILY 30 Days Qty: 30 5RF fluticasone propionate 50 mcg/actuation spray,suspension 2 spray INTRANASAL DAILY PRN (Reason: allergy symptoms) 30 Days Qty: 15.8 5RF Rx Instructions: each nostril daily for 2 days, then 1 spray daily 1 wk, then PRN ibuprofen 800 mg tablet 800 mg PO TID PRN (Reason: pain) Hold Instructions: Resume on 04/13/24. multivitamin Tablet 1 tab PO DAILY Bevespi Aerosphere 9-4.8 mcg HFA aerosol inhaler 2 puff inhalation BID pantoprazole [Protonix] 20 mg tablet,delayed release (DR/EC) 20 mg PO DAILY rizatriptan [Maxalt] 10 mg tablet 10 mg PO Q2H PRN (Reason: Headache) Rx Instructions: do not exceed 3 doses per 24 hrs oyster shell with vit d 1 tab PO DAILY gabapentin 300 mg capsule 600 mg PO TID mupirocin 2 % ointment 1 applic topical BID Qty: 22 1RF Rx Instructions: apply twice a day until healed. nitroglycerin 0.4 mg tablet, sublingual 0.4 mg sublingual Q5M PRN (Reason: chest pain) 30 Days Qty: 30 3RF Rx Instructions: until response; do not exceed 3 doses per episode duloxetine 60 mg capsule,delayed release(DR/EC) 60 mg PO DAILY Qty: 30 2RF hydroxyzine HCl 50 mg tablet 50 mg PO QID PRN (Reason: anxiety) Qty: 120 2RF mirtazapine 15 mg tablet 22.5 mg PO .HS Qty: 45 2RF oxcarbazepine [Trileptal] 300 mg tablet 600 mg PO BID Qty: 120 2RF prazosin 5 mg capsule 5 mg PO .HS Qty: 30 2RF hydrocodone-acetaminophen 7.5-325 mg tablet 1 tab PO Q6H PRN (Reason: pain) Qty: 14 0RF Hold Instructions: Resume on 05/05/24. docusate sodium [Colace] 100 mg capsule 100 mg PO BID Qty: 10 0RF hydrocodone-acetaminophen 7.5-325 mg tablet 1 tab PO Q6H PRN (Reason: pain) Qty: 12 0RF docusate sodium [Colace] 100 mg capsule 100 mg PO BID Qty: 10 0RF Discharge Orders: Discharge ED (Routine); Ordered 05/15/24 Ordered By: Vahe Camilo Referrals: PA Dong, AEROSPACE MANAGER [Primary Care Provider] - Discharge Diet: Usual diet Discharge Activity: Limit activity as instructed Patient Instructions: Opioid Safety, Pain Management Activity Restrictions/Additional Instructions: Thank you for choosing [facility] for your healthcare needs today. It is very important that you follow up as instructed or that you return to the Emergency Department should you have concerns or if your condition changes or worsens in any way. You were seen in the emergency room after the wound on your back opened up. Discussed with Dr. Kee and he asked that we reapproximate skin edges. Skin edges were reapproximated with sutures. Recommend you wear the [id number] brace is much as possible to prevent from increasing skin tension on the back which may delay healing. The wound was closed in such a way it is likely to have some drainage over the next several days. This is not unusual. If you have a fever or there is purulent drainage or redness around the wound have it rechecked. Apply topical antibiotic ointment you are prescribed to the wound at least once a day. Contact Dr. Kee's office for follow-up. Coding Level of Care Code ED Tank Furnace Operator for Irene Waldron
== END 2024-05-15 18:04 | disposition home or self-care (01) ==
PROVIDERS: Emergency Provider Family Medicine; PCP Nurse Practitioner Family
DX: T81.30XA Disruption of wound, unspecified, initial encounter (principal); X58.XXXA Exposure to other specified factors, initial encounter; F17.210 Nicotine dependence, cigarettes, uncomplicated; Z85.828 Personal history of other malignant neoplasm of skin; J44.9 Chronic obstructive pulmonary disease, unspecified
CPT/HCPCS: 99283

== ENCOUNTER → 2024-06-05 08:50 | Outpatient (BNVA) | payer MEDICAID, SELFPAY | PROVIDERS: PCP Nurse Practitioner Family; Visit Provider Surgery | DX: Z98.890 Other specified postprocedural states (principal); Z85.828 Personal history of other malignant neoplasm of skin | CPT/HCPCS: 99214 ==

== ENCOUNTER → 2024-12-26 12:35 | Outpatient (BNVA) | payer MEDICAID, SELFPAY | PROVIDERS: PCP Nurse Practitioner Family; Visit Provider Podiatrist Foot & Ankle Surgery | DX: M25.571 Pain in right ankle and joints of right foot (principal); M79.671 Pain in right foot | CPT/HCPCS: 20605; 99213; J1100; J3301; J3490 ==

== ENCOUNTER → 2025-01-19 13:04 | Outpatient (BNVA) | payer MEDICAID, SELFPAY | PROVIDERS: PCP Nurse Practitioner Family; Visit Provider Nurse Practitioner Family | DX: L70.5 Acne excoriee (principal); L57.8 Other skin changes due to chronic exposure to nonionizing radiation; L81.4 Other melanin hyperpigmentation; D22.5 Melanocytic nevi of trunk; L82.1 Other seborrheic keratosis; Z08 Encounter for follow-up examination after completed treatment for malignant neoplasm; Z85.828 Personal history of other malignant neoplasm of skin; D48.5 Neoplasm of uncertain behavior of skin | CPT/HCPCS: 11102; 99213 ==

== ENCOUNTER → 2025-02-22 15:26 | Outpatient (BNVA) | payer MEDICAID, SELFPAY | PROVIDERS: PCP Nurse Practitioner Family; Visit Provider Orthopaedic Surgery | DX: M40.204 Unspecified kyphosis, thoracic region (principal); M25.78 Osteophyte, vertebrae; M25.559 Pain in unspecified hip | CPT/HCPCS: 72050; 72110; 73523; 99203 ==